=== PATIENT | female | born 1965 | race African-American/Black ===

== ENCOUNTER 2017-04-30 09:57 | Emergency (ER) | payer MEDICAID ==
[~2017-04-30] VITALS: Ht 185.4 cm; Wt 93.2 kg
[~2017-04-30 09:57] MED LIST: AMLO-512 PO; BACTDSB PO; GLIP10TA9 PO; HYDR25TA PO; LISI10TA7 PO; METF10002 PO; ONDA4TAB9 PO; SULF1TAB42 PO
[2017-04-30 10:42] LABS: INFLUENZA TYPE A NEGATIVE FOR TYPE A (NEGATIVE); INFLUENZA TYPE B NEGATIVE FOR TYPE B (NEGATIVE)
[2017-04-30] MEDS ORDERED: ACETAMINOPHEN 325 MG TABLET ONE (10:50)
[2017-04-30] MEDS ORDERED: ACETAMINOPHEN 325 MG TABLET PO ONE (11:00)
[2017-04-30] MEDS ORDERED: SODIUM CHLORIDE 0.9% 1,000 ML IV ONE (11:15)
[2017-04-30 11:43] LABS: EOSINOPHILS % (AUTO) 0.2 % (1.0-6.0); HEMOGLOBIN 10.8 g/dL (12.0-16.0); LYMPHOCYTES # (AUTO) 0.5 K/uL (1.0-4.8); LYMPHOCYTES % (AUTO) 7.5 % (22.0-44.0); MEAN CORPUSCULAR HEMOGLOBIN 27.6 pg (26.0-34.0); MEAN CORPUSCULAR HGB CONC 33.6 G/dL (31.0-37.0); MEAN CORPUSCULAR VOLUME 82 fL (80-100); MONOCYTES # (AUTO) 0.5 K/uL (0.1-1.0); MONOCYTES % (AUTO) 7.3 % (2.0-9.0); NEUTROPHILS # (AUTO) 5.4 K/uL (1.8-7.7); PLATELET COUNT (AUTO) 198 K/uL (150-450); RED CELL DISTRIBUTION WIDTH 15.5 % (11.5-14.5)
[2017-04-30 11:52] LABS: ANION GAP 7 mmol/L (8-16); CALCIUM, TOTAL 7.7 mg/dL (8.8-10.5); CARBON DIOXIDE 29 mmol/L (22-29); CHLORIDE 105 mmol/L (98-107); CREATININE 0.71 mg/dL (0.60-1.30); GLOMERULAR FILTR. RATE CALC > 60 mL/min (>60); GLUCOSE,RANDOM 145 mg/dL (70-110); POTASSIUM 3.1 mmol/L (3.5-5.1); SODIUM SERUM 141 mmol/L (136-145); UREA NITROGEN, BLOOD 9 mg/dL (7-18)
[2017-04-30] MEDS ORDERED: IBUPROFEN 800 MG TABLET PO ONE (12:00)
[2017-04-30] MEDS ORDERED: IBUPROFEN 800 MG TABLET ONE (12:00)
[2017-04-30] MEDS ORDERED: DEXAMETHASONE 4 MG TABLET PO ONE (12:00)
[2017-04-30 13:02] VITALS: BP 123/65
== END 2017-04-30 13:42 | disposition home or self-care (01) ==
LOC: EMS 09:59
DX: I10 Essential (primary) hypertension (principal); J02.9 Acute pharyngitis, unspecified; M79.1 Myalgia; E11.9 Type 2 diabetes mellitus without complications; E78.00 Pure hypercholesterolemia, unspecified; F17.210 Nicotine dependence, cigarettes, uncomplicated
CPT/HCPCS: 36415; 80048; 85025; 87804; 96360; 96361; 99285; J7030; J8540

== ENCOUNTER 2023-05-03 15:11 | Emergency (ER) | payer MEDICAID ==
[~2023-05-03] VITALS: Ht 182.9 cm; Wt 86.4 kg
[~2023-05-03 15:11] MED LIST changes: -AMLO-512 PO; +AMLO10TA55 PO; +ASPI81 PO; +ATOR-2 PO; -BACTDSB PO; +CLOP75TA32 PO; +CYCL10TA16 PO; -GLIP10TA9 PO; -HYDR25TA PO; +INSU100I26 SQ; -LISI10TA7 PO; +LISI40TA9 PO; +METF-446 PO; -METF10002 PO; -ONDA4TAB9 PO; -SULF1TAB42 PO
[2023-05-03 15:59] LABS: BASOPHILS % (AUTO) 0.4 % (0.0-2.0); EOSINOPHILS % (AUTO) 0.7 % (1.0-6.0); HEMATOCRIT 39.5 % (36-46); HEMOGLOBIN 13.4 g/dL (12.0-16.0); LYMPHOCYTES % (AUTO) 45.3 % (22.0-44.0); MEAN CORPUSCULAR HEMOGLOBIN 28.7 pg (26.0-34.0); MEAN CORPUSCULAR HGB CONC 34.1 G/dL (31.0-37.0); MEAN CORPUSCULAR VOLUME 84 fL (80-100); MONOCYTES # (AUTO) 0.4 K/uL (0.1-1.0); MONOCYTES % (AUTO) 9.9 % (2.0-9.0); NEUTROPHILS % (AUTO) 43.7 % (40.0-70.0); PLATELET COUNT (AUTO) 278 K/uL (150-450); RED BLOOD CELL COUNT(AUTO) 4.68 MIL/uL (4.00-5.20); RED CELL DISTRIBUTION WIDTH 13.6 % (11.5-14.5); WHITE BLOOD COUNT (AUTO) 4.5 K/uL (4.5-11.0)
[2023-05-03 16:06] LABS: GLUCOMETER DEV NAME(LOC) ERT.5; GLUCOSE,POINT OF CARE 240 MG/DL (70-110)
[2023-05-03 16:09] LABS: ANION GAP 10 mmol/L (8-16); CALCIUM, TOTAL 9.2 mg/dL (8.8-10.5); CARBON DIOXIDE 31 mmol/L (22-29); CHLORIDE 95 mmol/L (98-107); CREATININE 1.01 mg/dL (0.60-1.30); GLOMERULAR FILTR. RATE CALC > 60 mL/min (>60); GLUCOSE,RANDOM 236 mg/dL (70-110); SODIUM SERUM 136 mmol/L (136-145); UREA NITROGEN, BLOOD 16 mg/dL (7-18)
[2023-05-03 16:11] LABS: POTASSIUM 2.8 mmol/L (3.5-5.1)
[2023-05-03 16:15] LABS: ALANINE AMINOTRANSFERASE 23 U/L (12-78); ALBUMIN 4.4 g/dL (3.4-5.0); ALKALINE PHOSPHATASE 101 U/L (46-116); ASPARTATE AMINOTRANSFERASE 18 U/L (15-37); BILIRUBIN,TOTAL 0.9 mg/dL (0.1-1.0); LIPASE 42 U/L (16-77); TOTAL PROTEIN, SERUM 8.2 g/dL (6.4-8.2); TROPONIN I-HIGH SENSITIVITY 6 ng/L (<51)
[2023-05-03] MEDS ORDERED: ASPIRIN 325 MG TABLET PO ONE (16:15)
[2023-05-03] MEDS ORDERED: POTASSIUM CHLORIDE 10% 40 MEQ/30 ML LIQUID UDCUP PO ONE ×2 (16:15→16:45)
[2023-05-03] MEDS ORDERED: NITROGLYCERIN 0.4 MG SUBLINGUAL TABLET #25 SL ONE (16:15)
[2023-05-03] MEDS ORDERED: MORPHINE SULFATE 4 MG/ML SYRINGE IVP ONE (16:15)
[2023-05-03] MEDS ORDERED: ONDANSETRON HCL 4 MG/2 ML VIAL IVP ONE (16:15)
[2023-05-03] MEDS ORDERED: NITROGLYCERIN 2% (1 GM=INCH) OINTMENT PACKET TP ONE (16:15)
[2023-05-03 16:35] VITALS: TEMP 98.3
[2023-05-03] MEDS ORDERED: OxyCODONE HCL/ACETAMINOPHEN 5-325 MG TABLET PO PRN (17:00)
[2023-05-03] MEDS ORDERED: DEXTROSE 50%-WATER 25 GM/50 ML SYRINGE IVP PRN (17:00)
[2023-05-03] MEDS ORDERED: POTASSIUM CHL 10 MEQ/WATER 50 ML IV PRN (17:00)
[2023-05-03] MEDS ORDERED: POTASSIUM CHLORIDE 20 MEQ ER TABLET PO PRN (17:00)
[2023-05-03] MEDS ORDERED: MAGNESIUM HYDROXIDE SUSPENSION 30 ML UDCUP PO PRN (17:00)
[2023-05-03] MEDS ORDERED: ZOLPIDEM TARTRATE 5 MG TABLET PO PRN (17:00)
[2023-05-03] MEDS ORDERED: ACETAMINOPHEN 325 MG TABLET PO PRN (17:00)
[2023-05-03] MEDS ORDERED: LISINOPRIL 10 MG TABLET PO SCH (17:00)
[2023-05-03] MEDS ORDERED: ONDANSETRON HCL 4 MG/2 ML VIAL IVP PRN (17:00)
[2023-05-03] MEDS ORDERED: INSULIN LISPRO 100 UNITS/ML SQ PRN (17:00)
[2023-05-03] MEDS ORDERED: ATORVASTATIN CALCIUM 20 MG TABLET PO SCH (17:00)
[2023-05-03 17:21] VITALS: BP 154/101; PULSE 77; RESP 14
[2023-05-03] MEDS ORDERED: MetFORMIN HCL 500 MG TABLET PO SCH (17:30)
[2023-05-03] MEDS ORDERED: DOCUSATE SODIUM 100 MG CAPSULE PO SCH (21:00)
[2023-05-04] MEDS ORDERED: HEPARIN SODIUM,PORCINE 5,000 UNITS/ML VIAL SQ SCH
[2023-05-04] MEDS ORDERED: ASPIRIN 81 MG CHEWABLE TABLET PO SCH ×2 (09:00)
[2023-05-04] MEDS ORDERED: FAMOTIDINE 20 MG TABLET PO SCH (09:00)
== END 2023-05-03 17:39 | disposition left against medical advice (07) ==
LOC: EMS 15:15
DX: E11.65 Type 2 diabetes mellitus with hyperglycemia (principal); E87.6 Hypokalemia; R07.89 Other chest pain; M19.90 Unspecified osteoarthritis, unspecified site; E78.00 Pure hypercholesterolemia, unspecified; I10 Essential (primary) hypertension; Z87.891 Personal history of nicotine dependence
CPT/HCPCS: 99291; 96374; 96375; 80053; 82962; 83690; 84484; 85025; 36415; 71045; 93005; J2270; J2405

== ENCOUNTER 2023-10-21 13:20 | Emergency (ER) | payer MEDICAID ==
[~2023-10-21] VITALS: Ht 167.6 cm; Wt 75.0 kg
[2023-10-21 13:23] VITALS: TEMP 98
[2023-10-21] MEDS: IBUPROFEN 600 MG TABLET PO ONE (14:34)
[2023-10-21] MEDS: GuaiFENesin/D-METHORPHAN [SUGAR-FREE] 200-20MG/10 ML SYRUP UDCUP PO ONE (14:34)
[2023-10-21] MEDS: ACETAMINOPHEN 500 MG TABLET PO ONE (14:35)
[2023-10-21 14:37] LABS: BASOPHILS % (AUTO) 0.4 % (0.0-2.0); EOSINOPHILS % (AUTO) 0.9 % (1.0-6.0); HEMATOCRIT 37.6 % (36-46); HEMOGLOBIN 12.3 g/dL (12.0-16.0); LYMPHOCYTES # (AUTO) 2.4 K/uL (1.0-4.8); LYMPHOCYTES % (AUTO) 42.8 % (22.0-44.0); MEAN CORPUSCULAR HEMOGLOBIN 27.4 pg (26.0-34.0); MEAN CORPUSCULAR HGB CONC 32.6 G/dL (31.0-37.0); MEAN CORPUSCULAR VOLUME 84 fL (80-100); MONOCYTES # (AUTO) 0.5 K/uL (0.1-1.0); MONOCYTES % (AUTO) 8.4 % (2.0-9.0); NEUTROPHILS # (AUTO) 2.7 K/uL (1.8-7.7); NEUTROPHILS % (AUTO) 47.5 % (40.0-70.0); PLATELET COUNT (AUTO) 288 K/uL (150-450); RED BLOOD CELL COUNT(AUTO) 4.47 MIL/uL (4.00-5.20); RED CELL DISTRIBUTION WIDTH 14.8 % (11.5-14.5); WHITE BLOOD COUNT (AUTO) 5.7 K/uL (4.5-11.0)
[2023-10-21] MEDS ORDERED: ASPI-1444 PO (14:39)
[2023-10-21] MEDS ORDERED: HYDR25TA PO (14:39)
[2023-10-21] MEDS ORDERED: METO25 PO (14:39)
[2023-10-21 14:46] LABS: ANION GAP 4 mmol/L (8-16); CALCIUM, TOTAL 9.4 mg/dL (8.8-10.5); CARBON DIOXIDE 33 mmol/L (22-29); CHLORIDE 103 mmol/L (98-107); CREATININE 0.62 mg/dL (0.60-1.30); GLOMERULAR FILTR. RATE CALC > 60 mL/min (>60); GLUCOSE,RANDOM 201 mg/dL (70-110); SODIUM SERUM 140 mmol/L (136-145); UREA NITROGEN, BLOOD 9 mg/dL (7-18)
[2023-10-21 14:48] LABS: COVID AG,FIA SOURCE NASAL SWAB
[2023-10-21 14:55] LABS: TROPONIN I-HIGH SENSITIVITY 6 ng/L (<51)
[2023-10-21 15:09] LABS: SARS-COV2 (COVID) ANTIGEN,FIA Negative (Negative)
[2023-10-21 15:13] LABS: INFLUENZA TYPE A NEGATIVE FOR TYPE A (NEGATIVE); INFLUENZA TYPE B NEGATIVE FOR TYPE B (NEGATIVE)
[2023-10-21] MEDS ORDERED: ACET-66 PO (15:26)
[2023-10-21] MEDS ORDERED: IBUP-1554 PO (15:26)
[2023-10-21] MEDS ORDERED: GUAIFDM PO (15:26)
[2023-10-21 15:37] VITALS: BP 133/79; PULSE 72; RESP 16
[2023-10-21] MEDS: GENTAMICIN SULFATE 0.3% OPHTHALMIC SOLUTION 5 ML OD ONE (15:43)
== END 2023-10-21 15:55 | disposition home or self-care (01) ==
LOC: EMS 13:48
DX: J06.9 Acute upper respiratory infection, unspecified (principal); M19.012 Primary osteoarthritis, left shoulder; H10.9 Unspecified conjunctivitis; E11.9 Type 2 diabetes mellitus without complications; E78.00 Pure hypercholesterolemia, unspecified; I10 Essential (primary) hypertension; Z87.891 Personal history of nicotine dependence; Z20.822 Contact with and (suspected) exposure to COVID-19
CPT/HCPCS: 80048; 82962; 84484; 85025; 87804; 93005; 99284

== ENCOUNTER 2024-03-21 15:13 | Emergency (ER) | payer MEDICAID ==
[~2024-03-21] VITALS: Ht 182.9 cm; Wt 89.1 kg
[~2024-03-21 15:13] MED LIST changes: +ACET-66 PO; +ASPI-1444 PO; -ASPI81 PO; +GUAIFDM PO; +HYDR25TA PO; +IBUP-1554 PO; -LISI40TA9 PO; +METO25 PO
[2024-03-21 15:22] VITALS: TEMP 97.7
[2024-03-21 15:36] LABS: GLUCOMETER DEV NAME(LOC) ER.7; GLUCOSE,POINT OF CARE 119 MG/DL (70-110)
[2024-03-21] MEDS: ACETAMINOPHEN 500 MG TABLET PO ONE (17:19)
[2024-03-21 17:29] LABS: BASOPHILS % (AUTO) 0.1 % (0.0-2.0); EOSINOPHILS % (AUTO) 0.5 % (1.0-6.0); HEMATOCRIT 38.2 % (36-46); HEMOGLOBIN 12.3 g/dL (12.0-16.0); LYMPHOCYTES # (AUTO) 3.3 K/uL (1.0-4.8); LYMPHOCYTES % (AUTO) 60.8 % (22.0-44.0); MEAN CORPUSCULAR HGB CONC 32.3 G/dL (31.0-37.0); MEAN CORPUSCULAR VOLUME 84 fL (80-100); MONOCYTES # (AUTO) 0.6 K/uL (0.1-1.0); MONOCYTES % (AUTO) 10.2 % (2.0-9.0); NEUTROPHILS # (AUTO) 1.5 K/uL (1.8-7.7); NEUTROPHILS % (AUTO) 28.4 % (40.0-70.0); PLATELET COUNT (AUTO) 267 K/uL (150-450); RED BLOOD CELL COUNT(AUTO) 4.55 MIL/uL (4.00-5.20); RED CELL DISTRIBUTION WIDTH 14.9 % (11.5-14.5); WHITE BLOOD COUNT (AUTO) 5.4 K/uL (4.5-11.0)
[2024-03-21 17:45] LABS: TROPONIN I-HIGH SENSITIVITY 6 ng/L (<51)
[2024-03-21 17:52] LABS: PLATELET MORPHOLOGY COMMENT GIANT PLTS PRESENT; RBC MORPHOLOGY COMMENT NORMAL RBC MORPH
[2024-03-21 17:54] VITALS: BP 146/74; PULSE 54; RESP 18; O2SAT 98
[2024-03-21 18:43] LABS: ANION GAP 5 mmol/L (8-16); CALCIUM, TOTAL 8.8 mg/dL (8.8-10.5); CARBON DIOXIDE 32 mmol/L (22-29); CHLORIDE 104 mmol/L (98-107); CREATININE 0.63 mg/dL (0.60-1.30); GLOMERULAR FILTR. RATE CALC > 60 mL/min (>60); GLUCOSE,RANDOM 72 mg/dL (70-110); POTASSIUM 3.1 mmol/L (3.5-5.1); SODIUM SERUM 141 mmol/L (136-145); UREA NITROGEN, BLOOD 6 mg/dL (7-18)
[2024-03-21] MEDS: IBUPROFEN 400 MG TABLET PO ONE (18:55)
[2024-03-21] MEDS: METOCLOPRAMIDE HCL 10 MG TABLET PO ONE (18:55)
== END 2024-03-21 19:35 | disposition home or self-care (01) ==
LOC: EMS 15:13
DX: R51.9 Headache, unspecified (principal); R42 Dizziness and giddiness; E87.6 Hypokalemia; I10 Essential (primary) hypertension; E11.9 Type 2 diabetes mellitus without complications; E78.00 Pure hypercholesterolemia, unspecified; Z79.02 Long term (current) use of antithrombotics/antiplatelets; Z79.84 Long term (current) use of oral hypoglycemic drugs; Z86.73 Personal history of transient ischemic attack (TIA), and cerebral infarction without residual deficits; Z79.899 Other long term (current) drug therapy
CPT/HCPCS: 70450; 71045; 80048; 82962; 83880; 84484; 85025; 93005; 99285; 36415-L1; 36415-TC

== ENCOUNTER 2025-02-25 16:50 | Inpatient (IN) | payer MEDICAID ==
[~2025-02-25] VITALS: Ht 182.9 cm; Wt 86.1 kg
[~2025-02-25 16:50] MED LIST changes: -ASPI-1444 PO; -CYCL10TA16 PO; -GUAIFDM PO; -IBUP-1554 PO; -INSU100I26 SQ
[2025-02-25 17:20] LABS: GLUCOMETER DEV NAME(LOC) ERT.7; GLUCOSE,POINT OF CARE 183 MG/DL (70-110)
[2025-02-25 17:24] LABS: PLATELET COUNT (AUTO) 227 K/uL (150-450); RED BLOOD CELL COUNT(AUTO) 4.70 MIL/uL (4.00-5.20); RED CELL DISTRIBUTION WIDTH 14.8 % (11.5-14.5); WHITE BLOOD COUNT (AUTO) 3.5 K/uL (4.5-11.0)
[2025-02-25 17:31] LABS: CALCIUM, TOTAL 8.3 mg/dL (8.8-10.5); CREATININE 0.59 mg/dL (0.60-1.30); GLOMERULAR FILTR. RATE CALC > 60 mL/min (>60); GLUCOSE,RANDOM 166 mg/dL (70-110); SODIUM SERUM 143 mmol/L (136-145); UREA NITROGEN, BLOOD 10 mg/dL (7-18)
[2025-02-25] MEDS ORDERED: IOHEXOL 350 MG/ML 100 ML VIAL ONE (17:33)
[2025-02-25] MEDS ORDERED: 0.9% SODIUM CHLORIDE 10 ML SYRINGE IVP ONE (17:33)
[2025-02-25] MEDS ORDERED: SODIUM CHLORIDE 0.9% 100 ML ONE (17:33)
[2025-02-25 17:37] LABS: ASPARTATE AMINOTRANSFERASE 20 U/L (15-37); CHOL/HDL RATIO 3.5 (3.9-5.7); LDL CHOL (CALC.) 83 mg/dL (0-130); TOTAL PROTEIN, SERUM 7.1 g/dL (6.4-8.2)
[2025-02-25 17:38] LABS: TROPONIN I-HIGH SENSITIVITY 6 ng/L (<51)
[2025-02-25 19:32] LABS: APPEARANCE,URINE CLEAR (CLEAR); GLUCOSE, URINE (UA) >=1000 mg/dL (NEGATIVE); LEUKOCYTE ESTERASE ,URINE NEGATIVE (NEGATIVE); NITRATE,URINE NEGATIVE (NEGATIVE); OCCULT BLOOD,URINE NEGATIVE (NEGATIVE); PH,URINE DRUG SCREEN 6.0 (5.0-8.0); SPECIFIC GRAVITIY, URINE 1.037 (1.003-1.030)
[2025-02-25 19:39] LABS: ALCOHOL, URINE DRUG SCREEN NEGATIVE (NEGATIVE); AMPHET/METH SCREEN,URINE NEGATIVE (NEGATIVE); BARBITURATE SCREEN, URINE NEGATIVE (NEGATIVE); CANNABINOID SCREEN,URINE NEGATIVE (NEGATIVE); COCAINE SCREEN,URINE NEGATIVE (NEGATIVE); METHADONE SCREEN, URINE NEGATIVE (NEGATIVE)
[2025-02-25 19:46] LABS: SQUAMOUS EPITHELIAL CELL,UR Rare /LPF (None Seen)
[2025-02-25] MEDS ORDERED: DAPA10TA PO (22:55)
[2025-02-25] MEDS ORDERED: IPRATROPIUM BROMIDE 0.5 MG/2.5 ML NEB SOLUTION NEB PRN (23:15)
[2025-02-25] MEDS ORDERED: HYDROCODONE/ACETAMINOPHEN 5-325 MG TABLET PO PRN (23:15)
[2025-02-25] MEDS ORDERED: BISACODYL 10 MG RECTAL RECTAL SUPPOSITORY PR PRN (23:15)
[2025-02-25] MEDS ORDERED: ALBUTEROL SULFATE 2.5 MG/0.5 ML NEB SOLUTION NEB PRN (23:15)
[2025-02-25] MEDS ORDERED: MORPHINE SULFATE 4 MG/ML SYRINGE IVP PRN (23:15)
[2025-02-25] MEDS ORDERED: ACETAMINOPHEN 325 MG TABLET PO PRN (23:15)
[2025-02-25] MEDS ORDERED: ONDANSETRON HCL 4 MG/2 ML VIAL IVP PRN (23:15)
[2025-02-25] MEDS ORDERED: MAGNESIUM HYDROXIDE SUSPENSION 30 ML UDCUP PO PRN (23:15)
[2025-02-25] MEDS: ZOLPIDEM TARTRATE 5 MG TABLET PO PRN (23:32)
[2025-02-25] MEDS: HEPARIN SODIUM,PORCINE 5,000 UNITS/ML VIAL SQ SCH (23:32)
[2025-02-25 23:36] LABS: TROPONIN I-HIGH SENSITIVITY 6 ng/L (<51)
[2025-02-26 02:33] VITALS: BP 144/77; PULSE 56; RESP 18; TEMP 98.2; O2SAT 96
[2025-02-26 05:07] VITALS: BP 151/75; PULSE 52; RESP 18; TEMP 97.5; O2SAT 95
[2025-02-26 06:21] LABS: TROPONIN I-HIGH SENSITIVITY 8 ng/L (<51)
[2025-02-26] MEDS: CLOPIDOGREL BISULFATE 75 MG TABLET PO SCH (08:49)
[2025-02-26] MEDS: DAPAGLIFLOZIN PROPANEDIOL 5 MG TABLET PO SCH (08:49)
[2025-02-26] MEDS: ASPIRIN 81 MG CHEWABLE TABLET PO SCH (08:49)
[2025-02-26] MEDS: PANTOPRAZOLE SODIUM 40 MG DR TABLET PO SCH (08:49)
[2025-02-26 09:00] VITALS: BP 151/88; PULSE 50; RESP 19; TEMP 97.3; O2SAT 100
[2025-02-26 12:37] VITALS: BP 153/78; PULSE 62; RESP 18; TEMP 98; O2SAT 99
[2025-02-26 17:20] LABS: GLUCOMETER DEV NAME(LOC) 5S.1E; GLUCOSE,POINT OF CARE 109 MG/DL (70-110)
[2025-02-26] MEDS ORDERED: ATORVASTATIN CALCIUM 40 MG TABLET PO SCH ×2 (21:00)
[2025-02-26] MEDS ORDERED: [UNRECOGNIZED DRUG - OTHER] PO SCH (21:00)
== END 2025-02-26 14:50 | disposition left against medical advice (07) | DRG 47 ==
LOC: EMS 16:50 → EDH 23:14 → 5S 02-26 01:27
PROVIDERS: ADMIT Hospitalist; ATTEND Hospitalist
DX: G45.9 Transient cerebral ischemic attack, unspecified (principal); E11.9 Type 2 diabetes mellitus without complications; E78.00 Pure hypercholesterolemia, unspecified; E87.6 Hypokalemia; I10 Essential (primary) hypertension; Z82.49 Family history of ischemic heart disease and other diseases of the circulatory system; Z83.3 Family history of diabetes mellitus; Z86.73 Personal history of transient ischemic attack (TIA), and cerebral infarction without residual deficits; Z87.891 Personal history of nicotine dependence; Z13.220 Encounter for screening for lipoid disorders; Z79.899 Other long term (current) drug therapy
CPT/HCPCS: 70496; 70498; 70551; 71045; 80053; 80061; 80307; 81001; 82948; 82962; 83036; 84484; 85025; 85610; 85730; 86850; 86900; 86901; 92610; 93005; 93306; 93880; 97162; 97165; 99291; G0378; J1644; J7050; 36415-L1; 36415-TC; 70450; 70450-TC